=== PATIENT | male | born 1985 | race American Indian/Alaskan Native ===

== ENCOUNTER 2021-02-25 15:05 | Emergency (ER) | payer SELFPAY ==
[2021-02-25 17:03] VITALS: BP 114/41
--- NOTE | 2021-02-25 17:07 | Emergency Department Report ---
ED Head Trauma HPI - General Chief complaint: Laceration/Recheck/Suture Stated complaint: RT EYE LACERATION Time Seen by Provider: 02/25/21 17:02 Source: patient Mode of arrival: Ambulatory Limitations: No Limitations - History of Present Illness Initial comments: 35-year-old male was helping repair an object with a ask like to when lost control striking self to the right brow resulting in a laceration and pain to the right side of the forehead region. No syncope. No neck pain. No fever, chills, sweats. No nausea vomiting, no chest pain palpitation. MD Complaint: head injury, head pain -: Gradual Loss of Consciousness: no Previous Trauma to this Area: No Radiation: none Severity: mild, moderate Quality: dull Consistency: constant Other Injuries: none Associated Symptoms: other - Related Data Previous Rx's Medication Instructions Recorded Last Taken Type Griseofulvin Ultramicrosize 250 mg PO BID #20 tablet 05/31/18 Unknown Rx [Monique-Peg] Sulfamethoxazole/Trimethoprim 2 each PO BID #28 tablet 05/31/18 Unknown Rx [Bactrim DS TAB] cephALEXin [Keflex] 500 mg PO QID #28 capsule 05/31/18 Unknown Rx traMADoL [Ultram] 50 mg PO Q6HR PRN #20 tablet 05/31/18 Unknown Rx Allergies/Adverse reactions: Allergies Allergy/AdvReac Type Severity Reaction Status Date / Time No Known Allergies Allergy Unverified 05/31/18 08:29 ED Review of Systems ROS: Stated complaint: RT EYE LACERATION Other details as noted in HPI Comment: All other systems reviewed and negative ED Past Medical Hx - Past Medical History Previous Medical History?: No Additional medical history: leg bone infection as a child - Surgical History Past Surgical History?: No Additional Surgical History: leg surgery - Social History Smoking Status: Unknown if ever smoked Substance Use Type: None - Medications Home Medications: Home Medications Medication Instructions Recorded Confirmed Last Taken Type Griseofulvin Ultramicrosize 250 mg PO BID #20 tablet 05/31/18 Unknown Rx [Monique-Peg] Sulfamethoxazole/Trimethoprim 2 each PO BID #28 tablet 05/31/18 Unknown Rx [Bactrim DS TAB] cephALEXin [Keflex] 500 mg PO QID #28 capsule 05/31/18 Unknown Rx traMADoL [Ultram] 50 mg PO Q6HR PRN #20 tablet 05/31/18 Unknown Rx ED Physical Exam - General Limitations: No Limitations General appearance: alert, in no apparent distress - Head Head exam: Present: normocephalic - Expanded Head Exam Expanded Head exam: Present: laceration 1 - Jagged laceration to this area 2 cm in length - Eye Eye exam: Present: normal appearance, PERRL, EOMI Pupils: Present: normal accommodation - ENT ENT exam: Present: normal exam, normal orophraynx, mucous membranes moist - Neck Neck exam: Present: normal inspection, full ROM. Absent: tenderness, meni ngismus - Respiratory Respiratory exam: Present: normal lung sounds bilaterally. Absent: respiratory distress - Cardiovascular Cardiovascular Exam: Present: regular rate, normal rhythm. Absent: systolic murmur, diastolic murmur, rubs, gallop - GI/Abdominal GI/Abdominal exam: Present: soft, normal bowel sounds - Rectal Rectal exam: Present: deferred - Extremities Exam Extremities exam: Present: normal inspection - Back Exam Back exam: Present: normal inspection - Neurological Exam Neurological exam: Present: alert, oriented X3 - Psychiatric Psychiatric exam: Present: normal affect, normal mood - Skin Skin exam: Present: warm, dry, intact, normal color. Absent: rash ED Course Vital Signs 02/25/21 17:00 Temperature 98.2 F Pulse Rate 82 Respiratory 18 Rate Blood Pressure 114/41 O2 Sat by Pulse 97 Oximetry - Laceration /Wound Repair Right Head Wound Location: face Wound Length (cm): 2 Wound's Depth, Shape: irregular Wound Explored: clean Betadine Prep?: Yes Anesthesia: 1% Lidocaine Volume Anesthetic (ccs): 2 Wound Debrided: minimal Wound Repaired With: sutures Number of Sutures: 3 Layer Closure?: No Critical care attestation.: If time is entered above; I have spent that time in minutes in the direct care of this critically ill patient, excluding procedure time. ED Disposition Clinical Impression: Laceration, Laceration of head Disposition: HOME / SELF CARE / HOMELESS Is pt being admited?: No Does the pt Need Aspirin: No Condition: Stable Instructions: Laceration Care, Adult, Sutured Wound Care, Sutures, Steffi, or Adhesive Wound Closure Additional Instructions: Please follow-up 7 days to be evaluated for possible suture removal keep wound clean with antibacterial soap and water and keep it dry. Referrals: [facility] [Provider Group] - 3-5 Days
== END 2021-02-25 17:55 | disposition home or self-care (01) ==
LOC: ED 15:05
DX: S01.81XA Laceration without foreign body of other part of head, initial encounter (principal); W19.XXXA Unspecified fall, initial encounter; Y93.89 Activity, other specified; Y92.89 Other specified places as the place of occurrence of the external cause; Y99.8 Other external cause status
CPT/HCPCS: 99281